=== PATIENT | female | born 1945 | race Caucasian/White ===

== ENCOUNTER 2016-08-10 07:44 | Day surgery (SDC) | payer MEDICARE, BC ==
[~2016-08-10] VITALS: Ht 154.9 cm; Wt 79.7 kg
--- NOTE | 2016-08-12 09:57 | OR ---
ADMIT: 08/10/2016 RM/LOC: [facility] MR#: [id number] [id number] [facility] [address] [place], [place] [address] SHANELLE WILLS [address] [place] [id number] Operative/Delivery Room Report SEX: F AGE: 71 : 1945 SURGERY DATE: 08/10/2016 SURGEON: Haim Cantor MD PREOPERATIVE DIAGNOSIS: Invasive right breast cancer. POSTOPERATIVE DIAGNOSIS: Invasive right breast cancer. PROCEDURES: 1. Right axillary sentinel lymph node biopsy. 2. Right wire localized lumpectomy. AUGER PRESS OPERATOR: JEAN Bell whose assistance was necessary for retraction of tissue. ANESTHESIA: General. ESTIMATED BLOOD LOSS: 15 mL. DESCRIPTION OF PROCEDURE: The patient was taken to the operating room and placed supine on the operating room table. The right wire localizer had been placed in Radiology prior to this. General anesthesia was established. 3 mL of Isosulfan Blue dye was injected in the retroareolar position. Breast tissue massage was performed for 3 minutes to allow uptake into lymphatics. The right breast and axilla were then prepped and draped in the standard surgical fashion. A curvilinear incision was made at the inferior hairline at the axillary area and carried to this axillary content. Careful inspection revealed 2 separate blue lymphatic channels tracking to 2 separate lymph nodes. The first of this was more radioactive and was excised. The ex-vivo count was 700. The second axillary sentinel lymph node was also blue, but less bright in color and less radioactive with an ex vivo count of 80. Background count was performed and was 18. There was no residual blue lymphadenopathy, no enlarged lymph nodes, and no bleeding. The deep tissue in the axilla was closed with 3-0 Vicryl suture. Skin edges were approximated with 4-0 Monocryl in a subcuticular fashion. Next, a curvilinear incision was made to incorporate the wire localizer in the upper outer quadrant of the ADMIT: 08/10/2016 RM/LOC: [facility] MR#: [id number] [address] [id number] SHANELLE WILLS [address] [place] [id number] Operative/Delivery Room Report SEX: F AGE: 71 : 1945 breast. Dissection proceeded to the subcutaneous tissue. A large core of breast tissue was excised around the wire localizer down beyond the tip. There was no palpable abnormality at the wound margins. The specimen was marked with a short stitch superiorly and a long stitch laterally. No abnormality was present in the lumpectomy cavity from a palpable perspective. This was sent for tissue mammography which showed incorporation of the wire localizer and clips from the biopsy. The wound was irrigated and there was no bleeding. The deep tissue was closed with 3-0 Vicryl suture. Skin edges were approximated with 4-0 Monocryl in a subcuticular fashion and Dermabond. Dressings were applied and local anesthetic was injected. Sponge, needle, and instrument counts were correct at the end of the case. The patient tolerated the procedure well and transferred to the recovery area in stable condition. Haim Cantor MD/ cole JOB #: [id number] CC: Haim Cantor, Attending Physician Senait Leo MD, Family Physician
== END 2016-08-10 13:40 | disposition home or self-care (01) ==
LOC: SSS 07:44 → RAD.S 07:44 → SSS 13:40
PROC: 07B50ZX Excision of Right Axillary Lymphatic, Open Approach, Diagnostic (ICD-10-PCS; principal; 2016-08-10)
PROC: 0HBT0ZZ Excision of Right Breast, Open Approach (ICD-10-PCS; principal; 2016-08-10)
DX: C50.911 Malignant neoplasm of unspecified site of right female breast (principal); M19.90 Unspecified osteoarthritis, unspecified site; M81.0 Age-related osteoporosis without current pathological fracture; Z98.890 Other specified postprocedural states

== ENCOUNTER 2016-08-26 06:52 | Day surgery (SDC) | payer MEDICARE, BC ==
[~2016-08-26] VITALS: Ht 154.9 cm; Wt 80.0 kg
--- NOTE | 2016-09-26 07:23 | OR ---
ADMIT: 08/26/2016 RM/LOC: [facility] MR#: [id number] [facility] [address] [place], [place] [address] SHANELLE WILLS [address] [place] [id number] Operative/Delivery Room Report SEX: F AGE: 71 : 1945 SURGERY DATE: 08/26/2016 SURGEON: Haim Cantor MD PREOPERATIVE DIAGNOSIS: Right breast cancer with close margin at lumpectomy site. POSTOPERATIVE DIAGNOSIS: Right breast cancer with close margin at lumpectomy site. PROCEDURE: Re-excision of lumpectomy margin. ANESTHESIA: General. ESTIMATED BLOOD LOSS: Minimal. DESCRIPTION OF PROCEDURE: The patient was taken to the operating room and placed supine on the operating room table. General anesthesia was established. The right breast was prepped and draped in the standard surgical fashion. The prior lumpectomy incision was opened. The seroma was evacuated. Inspection proceeded the capsule of the medial margin of the lumpectomy cavity. An additional 7 mm or 8 mm thick rim of tissue was excised. There was no obvious palpable mass residual in the wound. The wound was irrigated and there was no bleeding. Deep tissue was closed with 3-0 Vicryl suture. Skin edges were approximated with 4-0 Monocryl in a subcuticular fashion and Dermabond. Local anesthetic was injected and a dressing was applied. Sponge, needle, and instrument counts were correct at the end of the case. The patient tolerated the procedure well and transferred to the recovery area in stable condition. Haim Cantor MD/ cole JOB #: [id number] CC: Haim Cantor MD, Attending Physician Rossi Keita MD, Family Physician
== END 2016-08-26 11:35 | disposition home or self-care (01) ==
LOC: SSS 06:52
PROC: 0HBT0ZX Excision of Right Breast, Open Approach, Diagnostic (ICD-10-PCS; principal; 2016-08-26)
DX: D05.01 Lobular carcinoma in situ of right breast (principal); M19.90 Unspecified osteoarthritis, unspecified site; Z98.890 Other specified postprocedural states